=== PATIENT | female | born 1970 | race Caucasian/White ===

== ENCOUNTER 2017-12-23 12:49 | Inpatient (IN) | payer MEDICARE, MEDICAID ==
[~2017-12-23] VITALS: Ht 160 cm; Wt 77.1 kg
--- NOTE | ~2017-12-23 | ST ---
[place], [place] EXERCISE STRESS TEST REPORT [id number] UNIT #: [id number] ROOM: 404 DOCTOR: ЮЛИЯ MENDOZA MD BIRTHDATE: [birth year] DOS: 12/24/2017 EXERCISE TREADMILL STRESS TEST. REFERRING PHYSICIAN: Dr. Handley. INDICATION: Sharp precordial chest pain. FINDINGS: The patient underwent a standard Michael protocol stress testing with accompanying perfusion scan imaging. The patient's baseline EKG showed normal sinus with nonspecific ST-T wave changes. The heart rate was 76 with blood pressure 110/70. The patient's peak heart rate was 158 with a blood pressure 138/58. The patient's peak heart rate of 158 represents 90% maximum predicted. The patient exercised for 7 minutes 20 seconds. The patient had no chest pain, no arrhythmias, no EKG changes. SUMMARY OF FINDINGS: 1. Negative exercise treadmill EKG. 2. Dickinson Treadmill score of 7.5 portending a low risk prognosis. 3. Please see separate report for perfusion scan imaging. ЮЛИЯ MENDOZA MD CM:STRESS:EXERCISE STRESS TEST REPORT [id number] ЮЛИЯ MENDOZA MD
[2017-12-23 12:50] VITALS: BP 145/74
[2017-12-23] MEDS ORDERED: VENLAFAXINE HYD75 M3 PO (12:53)
[2017-12-23] MEDS ORDERED: LISINOPRIL10 M1 PO (12:53)
[2017-12-23] MEDS ORDERED: BUPROPION HYDR100 M3 PO (12:53)
[2017-12-23] MEDS ORDERED: TRAZODONE50 MG PO (12:54)
[2017-12-23] MEDS ORDERED: TOPIRAMATE25 M3 PO (12:55)
[2017-12-23 13:10] LABS: BASO % 0.3 % (0.0-1.0); EOS # 0.1 10*3/uL (0.0-0.4); EOS % 1.4 % (1.0-4.0); HEMOGLOBIN 14.5 g/dl (12.0-16.0); LYMPH # 1.4 10*3/uL (1.3-4.4); LYMPH % 19.2 % (27.0-41.0); MEAN CELL VOLUME 89.4 fl (81.0-99.0); MEAN CORPUSCULAR HGB 30.1 pg (27.0-31.0); MEAN CORPUSCULAR HGB CONC 33.7 g/dl (33.0-37.0); MEAN PLATELET VOLUME 10.3 fl (9.6-12.3); MONO # 0.5 10*3/uL (0.1-1.0); MONO % 6.7 % (3.0-9.0); NEUT # 5.3 10*3/uL (2.3-7.9); PLATELET COUNT AUTOMATED 262 10*3/uL (130-400); RED BLOOD COUNT 4.81 10*6/uL (4.10-5.10); RED CELL DISTRI WIDTH 12.7 % (0-14.5); WHITE BLOOD COUNT 7.3 10*3/uL (4.8-10.8)
[2017-12-23 13:20] LABS: ACT PARTIAL THROMBO TIME 23.9 SECONDS (20.8-31.5)
[2017-12-23 13:29] LABS: ALBUMIN 3.9 gm/dl (3.1-4.5); ALKALINE PHOSPHATASE 98 U/L (45-117); BUN 14 mg/dl (7-24); CHLORIDE 108 mmol/L (98-107); CREATININE 1.15 mg/dL (0.55-1.02); POTASSIUM 3.4 mmol/L (3.5-5.1); SGOT/AST 21 IU/L (3-35); SGPT/ALT 23 U/L (12-78); SODIUM 140 mmol/L (136-145); TOTAL PROTEIN 7.5 gm/dL (6.4-8.2)
[2017-12-23 13:33] LABS: TROPONIN I < 0.015 ng/ml (<0.045)
[2017-12-23 13:57] VITALS: BP 115/70; BP 145/74
[2017-12-23 16:00] VITALS: BP 108/74
[2017-12-23 20:00] VITALS: BP 121/71
[2017-12-24] VITALS: BP 102/61
[2017-12-24 06:37] LABS: BASO % 0.4 % (0.0-1.0); EOS # 0.1 10*3/uL (0.0-0.4); EOS % 1.7 % (1.0-4.0); HEMATOCRIT 39.3 % (37.0-47.0); LYMPH # 1.2 10*3/uL (1.3-4.4); LYMPH % 26.2 % (27.0-41.0); MEAN CELL VOLUME 90.3 fl (81.0-99.0); MEAN CORPUSCULAR HGB 29.9 pg (27.0-31.0); MEAN CORPUSCULAR HGB CONC 33.1 g/dl (33.0-37.0); MEAN PLATELET VOLUME 10.5 fl (9.6-12.3); MONO # 0.5 10*3/uL (0.1-1.0); MONO % 9.5 % (3.0-9.0); NEUT # 2.9 10*3/uL (2.3-7.9); NEUT % 61.8 % (47.0-73.0); PLATELET COUNT AUTOMATED 186 10*3/uL (130-400); RED BLOOD COUNT 4.35 10*6/uL (4.10-5.10); RED CELL DISTRI WIDTH 12.8 % (0-14.5); WHITE BLOOD COUNT 4.7 10*3/uL (4.8-10.8)
[2017-12-24 07:07] LABS: BUN 13 mg/dl (7-24); CHLORIDE 114 mmol/L (98-107); CHOLESTEROL 159 mg/dL (<200); CREATININE 0.72 mg/dL (0.55-1.02); FREE T4 0.86 ng/dl (0.76-1.46); HDL CHOLESTEROL 39 mg/dl (40-60); LDL CHOLESTEROL 103 mg/dL (9-159); PHOSPHOROUS 2.5 mg/dL (2.5-4.9); POTASSIUM 4.2 mmol/L (3.5-5.1); SODIUM 144 mmol/L (136-145); TRIGLYCERIDES 83 mg/dl (<150); VLDL CHOLESTEROL 17 mg/dL (6-40)
[2017-12-24 07:50] VITALS: BP 98/62
[2017-12-24 08:00] VITALS: BP 105/62
[2017-12-24 08:13] LABS: VITAMIN D, 25-HYDROXY 11.1 ng/mL (30-100)
[2017-12-24] MEDS ORDERED: VENLAFAXINE HY150 M2 PO (11:33)
[2017-12-24] MEDS ORDERED: ASPIRIN ADULT L81 M2 PO (15:52)
== END 2017-12-24 16:24 | disposition home or self-care (01) | DRG 205 ==
LOC: ED 12:49 → EDHOLD 14:15 → 4E 14:15
PROVIDERS: Emergency Medicine; Student in an Organized Health Care Education/Training Program
PROC: 4A02XM4 Measurement of Cardiac Total Activity, External Approach (ICD-10-PCS; principal; 2017-12-24)
PROC: 3E073KZ Introduction of Other Diagnostic Substance into Coronary Artery, Percutaneous Approach (ICD-10-PCS; principal; 2017-12-24)
DX: M94.0 Chondrocostal junction syndrome [Tietze] (principal); N17.0 Acute kidney failure with tubular necrosis; J96.00 Acute respiratory failure, unspecified whether with hypoxia or hypercapnia; F33.9 Major depressive disorder, recurrent, unspecified; R00.0 Tachycardia, unspecified; I10 Essential (primary) hypertension; F41.9 Anxiety disorder, unspecified; D72.810 Lymphocytopenia; F25.9 Schizoaffective disorder, unspecified; E78.5 Hyperlipidemia, unspecified; E87.6 Hypokalemia; E87.8 Other disorders of electrolyte and fluid balance, not elsewhere classified; R73.9 Hyperglycemia, unspecified; Z90.711 Acquired absence of uterus with remaining cervical stump; Z83.3 Family history of diabetes mellitus; Z82.49 Family history of ischemic heart disease and other diseases of the circulatory system; Z88.7 Allergy status to serum and vaccine; Z79.899 Other long term (current) drug therapy; K21.9 Gastro-esophageal reflux disease without esophagitis

== ENCOUNTER 2018-04-29 22:37 | Emergency (ER) | payer MEDICARE, MEDICAID ==
[~2018-04-29] VITALS: Wt 74.8 kg
--- NOTE | ~2018-04-29 | EKG ---
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 Electronically Signed On 04-30-2018 19:53:21 PDT by Daren Rashid MD CM:EKGRPT:ELECTROCARDIOGRAM REPORT 52 ASHLYN SINGH MD EPIPHANY DRAFT REPORT ASHLYN SINGH MD
--- NOTE | ~2018-04-29 | EKG ---
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
[~2018-04-29 22:37] MED LIST: ASPIRIN ADULT L81 M2 PO; BUPROPION HYDR100 M3 PO; LISINOPRIL10 M1 PO; TOPIRAMATE25 M3 PO; TRAZODONE50 MG PO; VENLAFAXINE HY150 M2 PO; VENLAFAXINE HYD75 M3 PO
[2018-04-29 23:07] LABS: BASO % 0.5 % (0.0-1.0); EOS # 0.2 10*3/uL (0.0-0.4); EOS % 2.1 % (1.0-4.0); HEMATOCRIT 38.5 % (37.0-47.0); HEMOGLOBIN 12.9 g/dl (12.0-16.0); LYMPH # 2.2 10*3/uL (1.3-4.4); LYMPH % 27.7 % (27.0-41.0); MEAN CELL VOLUME 90.8 fl (81.0-99.0); MEAN CORPUSCULAR HGB 30.4 pg (27.0-31.0); MEAN CORPUSCULAR HGB CONC 33.5 g/dl (33.0-37.0); MEAN PLATELET VOLUME 10.4 fl (9.6-12.3); MONO # 0.8 10*3/uL (0.1-1.0); MONO % 9.5 % (3.0-9.0); NEUT # 4.8 10*3/uL (2.3-7.9); NEUT % 59.7 % (47.0-73.0); PLATELET COUNT AUTOMATED 209 10*3/uL (130-400); RED BLOOD COUNT 4.24 10*6/uL (4.10-5.10); RED CELL DISTRI WIDTH 13.1 % (0-14.5)
[2018-04-29 23:59] LABS: ACT PARTIAL THROMBO TIME 26.2 SECONDS (20.8-31.5); INTERNATIONAL NORM RATIO 0.9 (2.0-3.5)
[2018-04-30 00:06] LABS: ALBUMIN 3.2 gm/dl (3.1-4.5); ALKALINE PHOSPHATASE 87 U/L (45-117); BUN 13 mg/dl (7-24); CHLORIDE 110 mmol/L (98-107); CREATININE 0.77 mg/dL (0.55-1.02); POTASSIUM 3.5 mmol/L (3.5-5.1); SGOT/AST 16 IU/L (3-35); SGPT/ALT 28 U/L (12-78); SODIUM 142 mmol/L (136-145); TOTAL PROTEIN 6.2 gm/dL (6.4-8.2)
[2018-04-30 00:09] LABS: TROPONIN I < 0.015 ng/ml (<0.045)
[2018-04-30] MEDS ORDERED: KETOROLAC10 MG PO (01:02)
[2018-04-30] MEDS ORDERED: PEPCID20 MG PO (01:02)
== END 2018-04-30 01:22 | disposition home or self-care (01) ==
LOC: ED 22:37
PROVIDERS: Emergency Medicine Emergency Medical Services
DX: R07.89 Other chest pain (principal); I10 Essential (primary) hypertension; E78.5 Hyperlipidemia, unspecified; Z88.7 Allergy status to serum and vaccine; Z79.82 Long term (current) use of aspirin; Z79.899 Other long term (current) drug therapy; Z90.710 Acquired absence of both cervix and uterus; Z87.891 Personal history of nicotine dependence

== ENCOUNTER → 2020-04-13 | Outpatient (CLI) | payer MEDICARE ==
[~2020-04-13] MED LIST changes: +KETOROLAC10 MG PO; +PEPCID20 MG PO
== END | disposition home or self-care (01) ==
LOC: CT 11:00
DX: R55 Syncope and collapse (principal)

== ENCOUNTER 2022-03-05 19:00 | Emergency (ER) | payer MEDICARE ==
[~2022-03-05] VITALS: Ht 160 cm; Wt 77.1 kg
[2022-03-05] MEDS ORDERED: COZAAR25 M1 PO (19:24)
[2022-03-05] MEDS ORDERED: XANAX1 MG PO (19:26)
[2022-03-05] MEDS ORDERED: ADDERALL 30 MG30 MG PO (19:26)
[2022-03-05 20:11] LABS: BASO % 0.4 % (0.0-1.0); EOS # 0.1 10*3/uL (0.0-0.4); EOS % 1.4 % (1.0-4.0); HEMATOCRIT 40.1 % (37.0-47.0); LYMPH # 1.6 10*3/uL (1.3-4.4); LYMPH % 22.8 % (27.0-41.0); MEAN CELL VOLUME 88.1 fl (81.0-99.0); MEAN CORPUSCULAR HGB 29.9 pg (27.0-31.0); MEAN CORPUSCULAR HGB CONC 33.9 g/dl (33.0-37.0); MEAN PLATELET VOLUME 9.8 fl (9.6-12.3); MONO # 0.6 10*3/uL (0.1-1.0); MONO % 8.1 % (3.0-9.0); NEUT # 4.7 10*3/uL (2.3-7.9); NEUT % 66.7 % (47.0-73.0); PLATELET COUNT AUTOMATED 238 10*3/uL (130-400); RED BLOOD COUNT 4.55 10*6/uL (4.10-5.10); RED CELL DISTRI WIDTH 12.7 % (0-14.5)
[2022-03-05 20:27] LABS: ALKALINE PHOSPHATASE 82 U/L (45-117); BUN 10 mg/dl (7-24); CHLORIDE 110 mmol/L (98-107); CREATININE 0.74 mg/dL (0.55-1.02); POTASSIUM 3.2 mmol/L (3.5-5.1); SGOT/AST 13 IU/L (3-35); SGPT/ALT 19 U/L (12-78); SODIUM 140 mmol/L (136-145); TOTAL PROTEIN 6.5 gm/dL (6.4-8.2)
== END 2022-03-05 21:55 | disposition left against medical advice (07) ==
LOC: ED 19:00
PROVIDERS: Nurse Practitioner Family
DX: G43.909 Migraine, unspecified, not intractable, without status migrainosus (principal); Z20.822 Contact with and (suspected) exposure to COVID-19; I10 Essential (primary) hypertension; Z88.7 Allergy status to serum and vaccine; Z79.899 Other long term (current) drug therapy; Z90.711 Acquired absence of uterus with remaining cervical stump; Z87.891 Personal history of nicotine dependence

== ENCOUNTER 2023-01-13 20:16 | Emergency (ER) | payer MEDICARE ==
[~2023-01-13] VITALS: Ht 160 cm; Wt 77.1 kg
[~2023-01-13 20:16] MED LIST changes: +ADDERALL 30 MG30 MG PO; +COZAAR25 M1 PO; +XANAX1 MG PO
[2023-01-13] MEDS ORDERED: METOPROLOL SUCC50 M1 PO (20:22)
[2023-01-13 20:29] LABS: BASO % 0.5 % (0.0-1.0); EOS # 0.1 10*3/uL (0.0-0.4); EOS % 0.9 % (1.0-4.0); HEMATOCRIT 43.3 % (37.0-47.0); LYMPH # 1.9 10*3/uL (1.3-4.4); LYMPH % 21.2 % (27.0-41.0); MEAN CELL VOLUME 87.7 fl (81.0-99.0); MEAN CORPUSCULAR HGB 29.8 pg (27.0-31.0); MEAN CORPUSCULAR HGB CONC 33.9 g/dl (33.0-37.0); MEAN PLATELET VOLUME 9.9 fl (9.6-12.3); MONO # 0.7 10*3/uL (0.1-1.0); MONO % 8.5 % (3.0-9.0); NEUT % 68.7 % (47.0-73.0); PLATELET COUNT AUTOMATED 266 10*3/uL (130-400); RED BLOOD COUNT 4.94 10*6/uL (4.10-5.10); WHITE BLOOD COUNT 8.7 10*3/uL (4.8-10.8)
[2023-01-13 20:41] LABS: ACT PARTIAL THROMBO TIME 32.5 SECONDS (20.0-32.1)
[2023-01-13 20:59] LABS: ALKALINE PHOSPHATASE 87 U/L (46-116); BUN 8 mg/dl (9-23); CHLORIDE 106 mmol/L (98-107); POTASSIUM 3.3 mmol/L (3.4-5.1); SGPT/ALT 12 U/L (10-49); TOTAL PROTEIN 6.8 gm/dL (6.0-8.0)
== END 2023-01-13 21:30 | disposition home or self-care (01) ==
LOC: ED 20:16
PROVIDERS: Emergency Medicine
DX: F41.8 Other specified anxiety disorders (principal); F32.A Depression, unspecified; I10 Essential (primary) hypertension; G43.909 Migraine, unspecified, not intractable, without status migrainosus; Z88.7 Allergy status to serum and vaccine; Z87.891 Personal history of nicotine dependence; Z90.711 Acquired absence of uterus with remaining cervical stump